=== PATIENT | male | born 1960 | race Caucasian/White ===

== ENCOUNTER 2019-07-02 19:56 | Emergency (ER) | payer BC ==
[~2019-07-02] VITALS: Ht 180.3 cm; Wt 108.9 kg
[2019-07-02] MEDS ORDERED: LOW DOSE ASPIRI81 M1 PO (20:16)
[2019-07-02] MEDS ORDERED: CLARITIN10 M3 PO (20:17)
[2019-07-02 21:26] LABS: HEMATOCRIT 41.4 % (42.0-52.0); HEMOGLOBIN 14.7 gm/dL (14.0-18.0); MCH 29.6 pg (26.0-34.0); MCHC 35.5 g/dL (28.0-37.0); MCV 83.5 fL (80.0-100.0); MPV 7.2 fl. (7.2-11.1); RBC 4.96 mil/uL (4.50-6.00); RDW-CV 13.1 % (10.5-14.5); WBC 8.2 thou/uL (4.0-11.0)
[2019-07-02 21:29] LABS: CALCIUM 8.6 mg/dL (8.5-10.1); CREATININE 0.9 mg/dL (0.6-1.3); POTASSIUM 3.8 mmol/L (3.5-5.1)
[2019-07-02 21:34] LABS: ALBUMIN 3.5 g/dL (3.4-5.0); TOTAL BILIRUBIN 0.5 mg/dL (<0.1-1.0); TOTAL PROTEIN 7.6 g/dL (6.4-8.2)
[2019-07-02 21:42] LABS: INR 1.1; PROTIME 11.1 Seconds (9.20-11.50)
[2019-07-02] MEDS ORDERED: XARELTO15 MG PO (21:45)
[2019-07-02] MEDS ORDERED: XARELTO20 MG PO (21:45)
[2019-07-02] MEDS ORDERED: HYDROCODON-ACE1 EAC7 PO (22:02)
[2019-07-02 22:06] VITALS: BP 132/93
== END 2019-07-02 22:06 | disposition home or self-care (01) ==
LOC: M.ERS 19:56
PROVIDERS: Personal Emergency Response Attendant
DX: I82.401 Acute embolism and thrombosis of unspecified deep veins of right lower extremity (principal); Z88.0 Allergy status to penicillin